=== PATIENT | female | born 1975 | race Caucasian/White ===

== ENCOUNTER 2023-10-06 19:17 | Outpatient (RCR) | payer BC, SELFPAY | END 2023-10-06 23:59 | disposition home or self-care (01) | LOC: RPT 19:17 | PROVIDERS: ATTENDING PHYSICIAN Obstetrics & Gynecology; PRIMARYCARE PHYSICIAN Internal Medicine | DX: K59.00 Constipation, unspecified (principal); R15.9 Full incontinence of feces; K46.9 Unspecified abdominal hernia without obstruction or gangrene; N39.3 Stress incontinence (female) (male); Z73.6 Limitation of activities due to disability; M62.89 Other specified disorders of muscle; N31.9 Neuromuscular dysfunction of bladder, unspecified | CPT/HCPCS: 97014; 97112; 97140; 97530 ==

== ENCOUNTER 2023-12-03 18:31 | Outpatient (RCR) | payer BC, SELFPAY | END 2023-12-03 23:59 | disposition home or self-care (01) | LOC: RPT 18:31 | PROVIDERS: ATTENDING PHYSICIAN Obstetrics & Gynecology; PRIMARYCARE PHYSICIAN Internal Medicine | DX: K59.00 Constipation, unspecified (principal); R15.9 Full incontinence of feces; K46.9 Unspecified abdominal hernia without obstruction or gangrene; N39.3 Stress incontinence (female) (male); Z73.6 Limitation of activities due to disability; M62.89 Other specified disorders of muscle; N31.9 Neuromuscular dysfunction of bladder, unspecified | CPT/HCPCS: 97014; 97112; 97140; 97530 ==

== ENCOUNTER → 2024-01-18 18:13 | Outpatient (REF) | payer BC, SELFPAY | LOC: WDC 18:13 | PROVIDERS: ATTENDING PHYSICIAN Obstetrics & Gynecology Gynecology; FAMILY PHYSICIAN Internal Medicine | DX: Z12.31 Encounter for screening mammogram for malignant neoplasm of breast (principal) | CPT/HCPCS: 77063; 77067 ==

== ENCOUNTER 2024-02-25 19:06 | Outpatient (RCR) | payer BC, SELFPAY | END 2024-02-25 23:59 | disposition home or self-care (01) | LOC: RPT 19:06 | PROVIDERS: ATTENDING PHYSICIAN Obstetrics & Gynecology; PRIMARYCARE PHYSICIAN Internal Medicine | DX: K59.00 Constipation, unspecified (principal); R15.9 Full incontinence of feces; K46.9 Unspecified abdominal hernia without obstruction or gangrene; Z73.6 Limitation of activities due to disability; N39.3 Stress incontinence (female) (male); M62.89 Other specified disorders of muscle; N31.9 Neuromuscular dysfunction of bladder, unspecified | CPT/HCPCS: 97110; 97140; 97530 ==

== ENCOUNTER 2024-04-29 13:59 | Outpatient (RCR) | payer BC, SELFPAY | END 2024-04-29 23:59 | disposition home or self-care (01) | LOC: RPT 13:59 | PROVIDERS: ATTENDING PHYSICIAN Obstetrics & Gynecology; PRIMARYCARE PHYSICIAN Internal Medicine | DX: K59.00 Constipation, unspecified (principal); R15.9 Full incontinence of feces; K46.9 Unspecified abdominal hernia without obstruction or gangrene; N39.3 Stress incontinence (female) (male); Z73.6 Limitation of activities due to disability; M62.89 Other specified disorders of muscle; N31.9 Neuromuscular dysfunction of bladder, unspecified | CPT/HCPCS: 97530 ==

== ENCOUNTER → 2024-07-29 08:55 | Outpatient (REF) | payer BC, SELFPAY | LOC: WDC 08:55 | PROVIDERS: ATTENDING PHYSICIAN Obstetrics & Gynecology Gynecology; FAMILY PHYSICIAN Internal Medicine | DX: R92.2 Inconclusive mammogram (principal) | CPT/HCPCS: 76641 ==

== ENCOUNTER → 2025-02-28 17:57 | Outpatient (REF) | payer BC, SELFPAY | LOC: WDC 17:57 | PROVIDERS: ATTENDING PHYSICIAN Obstetrics & Gynecology Gynecology; FAMILY PHYSICIAN Internal Medicine | DX: Z12.31 Encounter for screening mammogram for malignant neoplasm of breast (principal) | CPT/HCPCS: 77063; 77067 ==

== ENCOUNTER → 2025-08-11 08:38 | Outpatient (REF) | payer BC, SELFPAY | LOC: WDC 08:38 | PROVIDERS: ATTENDING PHYSICIAN Obstetrics & Gynecology Gynecology; FAMILY PHYSICIAN Internal Medicine | DX: R92.2 Inconclusive mammogram (principal) | CPT/HCPCS: 76641 ==